=== PATIENT | male | born 1970 | race Caucasian/White ===

== ENCOUNTER 2020-09-23 08:00 | Outpatient (CLI) | payer OTHER ==
--- NOTE | 2020-09-23 09:54 | XRAY Report ---
PROCEDURE: Shoulder 3 View LT INDICATIONS: L SHOULDER PX TECHNIQUE: 4 views of the shoulder were acquired. COMPARISON: None. FINDINGS: Bones: No fractures or dislocations. No suspicious bony lesions. Visualized ribs appear intact. Soft tissues: No suspicious soft tissue calcifications. 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 Reviewed by: Roberth Puente MD on 09/23/2020 9:52 AM PDT Approved by: Roberth Puente MD on 09/23/2020 9:52 AM PDT Station ID: [id number]
--- NOTE | 2020-09-23 12:48 | XRAY Report ---
PROCEDURE: Cervical Spine Complete INDICATIONS: CERVICAL DISC DISORDER AT C6-C7 LEVEL WITH RADICULOPATHY TECHNIQUE: 5 view(s) of the cervical spine were acquired. COMPARISON: None. FINDINGS: Bones: Quality of visualization on the oblique and lateral views is very limited from the mid-level of the C6 vertebral body inferiorly. There is at least a moderate degree of degenerative disc disease at C6-7, likely symmetric bilaterally, with moderate foraminal stenosis better seen on the right jessica n left. No fractures or dislocations to the T1 level on the frontal projection. The lateral masses o f C1 appear intact on the odontoid view. No suspicious bony lesions. Soft tissues: No prevertebral soft tissue swelling. IMPRESSION: No trauma or subluxation seen. Quality of visualization of the C6-7 level of the cervica l spine on the lateral and oblique views is limited but at least a moderate degree of degenerative di sc disease and facet osteoarthritis is considered present at this level. Reviewed by: Roberth Puente MD on 09/23/2020 12:47 PM PDT Approved by: Roberth Puente MD on 09/23/2020 12:47 PM PDT Station ID: [id number]
--- NOTE | 2020-09-23 12:59 | XRAY Report ---
PROCEDURE: Elbow 3 View LT INDICATIONS: L ELBOW PX TECHNIQUE: 3 views of the elbow were acquired. COMPARISON: None FINDINGS: Bones: No fractures or dislocations. No suspicious bony lesions. Soft tissues: No elbow joint effusion. No suspicious soft tissue calcifications. IMPRESSION: No visualized acute fracture or dislocation. However, occult injury cannot be excluded. Recommend kendell rt interval imaging follow-up in 7-10 days as clinically indicated for additional evaluation. Reviewed by: Tila Lee MD on 09/23/2020 12:57 PM PDT Approved by: Tila Lee MD on 09/23/2020 12:57 PM PDT Station ID: [id number]
== END 2020-09-23 23:59 | disposition home or self-care (01) ==
LOC: DI.N 08:00
PROVIDERS: ATTEND Orthopaedic Surgery
DX: M25.522 Pain in left elbow (principal); M19.012 Primary osteoarthritis, left shoulder; M47.812 Spondylosis without myelopathy or radiculopathy, cervical region; M50.323 Other cervical disc degeneration at C6-C7 level; M48.02 Spinal stenosis, cervical region

== ENCOUNTER 2022-02-24 12:24 | Outpatient (CLI) | payer MEDICAID ==
--- NOTE | 2022-02-24 17:35 | Ultrasound Report ---
PROCEDURE: Abdomen Limited INDICATIONS: SOFT TISSUSE MASS TECHNIQUE: Real-time focused scanning was performed of the abdomen, with image documentation. COMPARISON: None FINDINGS: Within the subcutaneous tissue at the area of interest, there is a hyperechoic structure without inte rnal vascularity consistent with lipoma measuring 1.7 x 1.0 x 1.9 cm IMPRESSION: Subcutaneous lipoma Reviewed by: Navid Vega MD on 02/24/2022 4:34 PM AKDT Approved by: Navid Vega MD on 02/24/2022 4:34 PM AKDT Station ID: [id number]
== END 2022-02-24 12:25 | disposition home or self-care (01) ==
LOC: DI 12:24
PROVIDERS: ATTEND Physician Assistant
DX: D17.1 Benign lipomatous neoplasm of skin and subcutaneous tissue of trunk (principal)

== ENCOUNTER 2022-02-26 14:00 | Outpatient (CLI) | payer MEDICAID ==
[2022-02-26 17:52] LABS: BASOPHILS % (AUTO) 0.5 %; EOSINOPHILS % (AUTO) 0.5 %; HCT - HEMATOCRIT 45.1 % (42.0-52.0); HGB - HEMOGLOBIN 16.2 g/dL (14.0-18.0); LYMPHOCYTES # (AUTO) 1.3 10^3/uL (1.5-3.5); LYMPHOCYTES % (AUTO) 22.4 %; MEAN CORPUSCULAR HEMOGLOBIN 32.5 pg (27.0-31.0); MEAN CORPUSCULAR HGB CONC 35.9 g/dL (32.0-36.0); MEAN CORPUSCULAR VOLUME 90.4 fL (80.0-94.0); MEAN PLATELET VOLUME 9.7 fL (7.4-11.4); MONOCYTES # (AUTO) 0.7 10^3/uL (0.0-1.0); MONOCYTES % (AUTO) 12.4 %; NEUTROPHILS # (AUTO) 3.8 10^3/uL (1.5-6.6); NEUTROPHILS % (AUTO) 63.7 %; PLT - PLATELET COUNT 185 10^3/uL (130-450); RED BLOOD COUNT 4.99 10^6/uL (4.70-6.10); RED CELL DISTRIBUTION WIDTH 11.3 % (12.0-15.0); WHITE BLOOD COUNT 5.9 x10^3/uL (4.8-10.8)
[2022-02-26 18:10] LABS: ALBUMIN 4.6 g/dL (3.2-5.5); ALBUMIN/GLOBULIN RATIO 1.6 (1.0-2.2); ALKALINE PHOSPHATASE 51 IU/L (42-121); ALT ALANINE AMINOTRANSFERASE 35 IU/L (10-60); AST ASPARTATE AMINOTRANSFERASE 24 IU/L (10-42); BUN - BLOOD UREA NITROGEN 14 mg/dL (6-20); CARBON DIOXIDE - CO2 30 mmol/L (21-32); CHLORIDE 103 mmol/L (101-111); CHOL/HDL RATIO 5.2 (<5.0); CHOLESTEROL 278 mg/dL; CREATININE 0.9 mg/dL (0.6-1.2); GFR - MDRD 89 (>89); GLUCOSE 98 mg/dL (70-100); HDL CHOLESTEROL 53 mg/dL; LDL CHOLESTEROL,CALCULATED 181 mg/dL; LDL/HDL RATIO 3.4 (<3.6); POTASSIUM 4.1 mmol/L (3.5-5.0); SODIUM 140 mmol/L (135-145); TOTAL PROTEIN 7.4 g/dL (6.7-8.2); TRIGLYCERIDES 218 mg/dL; VLDL CHOLESTEROL 44 mg/dL
== END 2022-02-26 14:01 | disposition home or self-care (01) ==
LOC: LAB.N 14:00
PROVIDERS: ATTEND Physician Assistant
DX: E78.5 Hyperlipidemia, unspecified (principal); R03.0 Elevated blood-pressure reading, without diagnosis of hypertension; Z13.220 Encounter for screening for lipoid disorders; Z12.5 Encounter for screening for malignant neoplasm of prostate
CPT/HCPCS: 36415; 80053; 80061; 83721; 84153; 85025